=== PATIENT | female | born 1940 | race Caucasian/White ===

== ENCOUNTER → 2016-07-24 | Outpatient (CLI) | payer OTHER | LOC: RAD 01:37 | DX: Z12.31 Encounter for screening mammogram for malignant neoplasm of breast (principal) ==

== ENCOUNTER → 2017-04-03 | Outpatient (CLI) | payer OTHER ==
[~2017-04-03] VITALS: Ht 149.9 cm; Wt 52.2 kg
[~2017-04-03] MED LIST: ADVAIR 250-501 EACH INH; ASPIR 8181 MG PO; ATORVASTATIN CA80 MG PO; BENICAR20 MG PO; CALCIUM 600 +1 EAC1 PO; CARDIZEM CD180 MG PO; FISH OIL 1,001000 M2 PO; PROAIR HFA8.5 GM INH; SINGULAIR 10 MG10 M1 PO
--- NOTE | ~2017-04-03 | S ---
[facility] [place] [address] SURGICAL PATH RPT PROCEDURE Name: RENEE MONTENEGRO Room #: REG [facility].#: [id number] Admission: 04/03/17 Date of : 42 Discharge: Report #: [id number] Path Case #: [id number] PATHOLOGY REPORT COLLECTION DATE: 04/03/2017 RECEIVED DATE: 04/03/2017 SUBMITTING PHYS: Dr. Lalit Waddell OTHER PHYS: Dr. Cherie Bruce SPECIMEN(S) RECEIVED: A.Sigmoid polyp * * * * * * * * * * * * FINAL DIAGNOSIS: Polyp, sigmoid polyp, endoscopic biopsy: - Ganglioneuroma. - Negative for malignancy. (IUV:abel; 04/05/2017) COMMENT: Immunohistochemical stains are performed due to the presence of a spindle cell proliferation occupying the lamina propria. (Block A1): S100 - Strong diffuse reactivity present SMA - Nonreactive CD117 - Nonreactive within the spindle cells CD34 - Reactive within the vessels Co-review: Dr. Earnestine Burgess (IUV:abel; 04/05/2017) PATHOLOGIST: Jaki Lobtao M.D. REPORT ELECTRONICALLY SIGNED BY: Jaki Lobato M.D. DATE/TIME: 04/05/2017 12:13 * * * * * * * * * * * * GROSS PATHOLOGY: Received in formalin labeled "Renee Montenegro, polyp at sigmoid colon," is a segment of chirinos soft tissue measuring 0.2 cm in maximum dimension. The specimen is submitted entirely in cassette A1. (TSD; 04/03/2017) CLINICAL HISTORY: Pre-OP DX: Hx polyps Post-OP DX: Colon polyp [facility] [place] [address] SURGICAL PATH RPT PROCEDURE Name: RENEE MONTENEGRO Room #: REG [facility] [place].#: [id number] Admission: 04/03/17 Date of : 42 Discharge: Report #: [id number] Path Case #: [id number] INITIAL CPT CODE(S): A; 99372, 23278, 79917, 90294, 59848 Professional services performed by [facility] at [address], [place] [address] Technical services performed by [facility] at [address] [place] [address], [place] [address]. [facility] [address] [place] [address] PHONE: [phone] DIRECTOR: Ayo Purcell M.D. * * * END OF REPORT * * *
--- NOTE | ~2017-04-03 | P ---
[facility] [place] [address] PROCEDURE REPORT Name: RENEE MONTENEGRO Room #: REG [facility]#: [id number] Admission: 04/03/17 Attend Phys: Lalit Cruz Discharge: Date of : 42 Report #: [id number] THIS REPORT FOR: //name// CC: Lalit Sandersibis Babincarmelina SOUSA DO Cherie Sousa DATE OF SERVICE: 04/03/2017 PROCEDURE PERFORMED: Colonoscopy with biopsies. HISTORY OF PRESENT ILLNESS: The patient is a 76-year-old female with a history of colon polyps. She is here for a routine followup. She denies any symptoms. No family history of colon cancer. DESCRIPTION OF PROCEDURE: The risks and benefits of the procedure were explained to the patient, those risks including but not limited to bleeding, perforation, the risk of sedation. She understood these risks and gave informed consent. Sedation was given using propofol per anesthesia. Next, a digital rectal exam was initially performed, which showed moderate to large size external hemorrhoids, nonbleeding, otherwise normal. Next, using a standard [employer] colon[employer], the scope was placed in the patient's anus and advanced under direct vision to the cecum. The overall prep was excellent. The cecum and ileocecal valve were normal in appearance. Ascending, transverse and descending colon were normal. Multiple small diverticula were noted in the sigmoid colon. No evidence of inflammation. Also noted in the sigmoid colon was a 4-mm sessile polyp. This was removed with cold forceps. The rectal mucosa was normal. On retroflexion, no abnormalities were noted. The scope was then withdrawn and the procedure terminated. The patient tolerated the procedure well. IMPRESSION: 1. Sigmoid diverticulosis. 2. Small sigmoid colon polyp. 3. Medium to large external hemorrhoids, nonbleeding. 4. Otherwise, normal colonoscopy. RECOMMENDATIONS: 1. Await biopsy results. 2. If polyp is adenomatous, consider repeat colonoscopy in [address] [address] PROCEDURE REPORT Name: LANRENEE [facility] [id number] Admission: 04/03/17 Attend Phys: Lalit Cruz Discharge: Date of : 42 Report #: [id number] Thank you for allowing me to participate in her care. <ELECTRONICALLY SIGNED> By: Lalit Waddell MD 04/05/17 0808 [id number] Lalit Waddell MD /nt
== END | disposition home or self-care (01) ==
LOC: GI 08:59
DX: Z09 Encounter for follow-up examination after completed treatment for conditions other than malignant neoplasm (principal); K63.5 Polyp of colon; K57.30 Diverticulosis of large intestine without perforation or abscess without bleeding; K64.4 Residual hemorrhoidal skin tags; I10 Essential (primary) hypertension; J45.909 Unspecified asthma, uncomplicated; E78.00 Pure hypercholesterolemia, unspecified; Z86.010 Personal history of colon polyps; Z95.1 Presence of aortocoronary bypass graft; Z87.891 Personal history of nicotine dependence; Z90.49 Acquired absence of other specified parts of digestive tract; Z98.41 Cataract extraction status, right eye; Z98.42 Cataract extraction status, left eye; Z98.890 Other specified postprocedural states; Z79.82 Long term (current) use of aspirin; Z79.899 Other long term (current) drug therapy
CPT/HCPCS: 62110; 62900

== ENCOUNTER → 2017-07-31 | Outpatient (CLI) | payer OTHER | LOC: RAD 04:00 | DX: Z12.31 Encounter for screening mammogram for malignant neoplasm of breast (principal) ==

== ENCOUNTER → 2019-06-09 | Outpatient (CLI) | payer OTHER | LOC: RAD 12:53 → SJCVCIMAG 12:53 | PROVIDERS: ATTEND Internal Medicine Cardiovascular Disease | DX: J43.9 Emphysema, unspecified (principal); I25.10 Atherosclerotic heart disease of native coronary artery without angina pectoris; I10 Essential (primary) hypertension; E78.00 Pure hypercholesterolemia, unspecified; I65.23 Occlusion and stenosis of bilateral carotid arteries; I38 Endocarditis, valve unspecified; E78.5 Hyperlipidemia, unspecified; Z95.1 Presence of aortocoronary bypass graft ==

== ENCOUNTER → 2020-01-12 | Outpatient (CLI) | payer OTHER | LOC: SJCVCIMAG 10:44 | PROVIDERS: ATTEND Internal Medicine Cardiovascular Disease | DX: I65.23 Occlusion and stenosis of bilateral carotid arteries (principal); I25.10 Atherosclerotic heart disease of native coronary artery without angina pectoris; E78.00 Pure hypercholesterolemia, unspecified; I10 Essential (primary) hypertension; I77.9 Disorder of arteries and arterioles, unspecified; J45.909 Unspecified asthma, uncomplicated; Z95.1 Presence of aortocoronary bypass graft; Z79.899 Other long term (current) drug therapy; Z87.891 Personal history of nicotine dependence ==

== ENCOUNTER → 2020-07-27 | Outpatient (CLI) | payer OTHER | LOC: SJCVC 15:04 | PROVIDERS: ATTEND Internal Medicine Cardiovascular Disease | DX: I25.810 Atherosclerosis of coronary artery bypass graft(s) without angina pectoris (principal); I10 Essential (primary) hypertension; E78.00 Pure hypercholesterolemia, unspecified; I65.23 Occlusion and stenosis of bilateral carotid arteries; I77.9 Disorder of arteries and arterioles, unspecified; J44.9 Chronic obstructive pulmonary disease, unspecified; Z90.49 Acquired absence of other specified parts of digestive tract; Z95.1 Presence of aortocoronary bypass graft; Z79.82 Long term (current) use of aspirin; Z79.899 Other long term (current) drug therapy; Z87.891 Personal history of nicotine dependence; Z82.49 Family history of ischemic heart disease and other diseases of the circulatory system ==

== ENCOUNTER → 2021-01-24 | Outpatient (CLI) | payer OTHER | LOC: SJCVCIMAG 09:03 | PROVIDERS: ATTEND Internal Medicine Cardiovascular Disease | DX: I08.0 Rheumatic disorders of both mitral and aortic valves (principal); I25.10 Atherosclerotic heart disease of native coronary artery without angina pectoris; I10 Essential (primary) hypertension; Z95.1 Presence of aortocoronary bypass graft ==